=== PATIENT | female | born 1995 ===

== ENCOUNTER 2024-10-15 16:02 | Emergency (ER) | payer SELFPAY ==
[2024-10-15 16:02] VITALS: PULSE 120; RESP 18; O2SAT 99; BMI 26.4
[2024-10-15 16:03] VITALS: BP 148/91; PULSE 113; RESP 16; TEMP 36.8; O2SAT 98
--- NOTE | 2024-10-15 16:16 | PC.NURSE ---
PT GOT OUT OF THE EMS GURNEY AND WALK OUT THE BACK DOOR, PT WAS ASKED TO STAY BUT REFUSE AND KEEP WALKING AND LEFT
== END 2024-10-15 16:16 | disposition left against medical advice (07) ==
LOC: SERX 23:07
PROVIDERS: Emergency Provider Emergency Medicine
DX: Z53.21 Procedure and treatment not carried out due to patient leaving prior to being seen by health care provider (principal)
CPT/HCPCS: 99281